=== PATIENT | female | born 1960 | race Hispanic/Latino ===

== ENCOUNTER 2020-04-14 02:47 | Observation (INO) | payer OTHER ==
--- NOTE | 2020-04-14 03:07 | PDOC.FPRHP ---
- History of Present Illness Chief Complaint: R sided weakness and numbness History of Present Illness: Ms. Buckley is a 59yoF who presented to the ED as a transfer from [place] for TIA/CVA workup. Symptoms started Tuesday night at 1900 while she was at home watching TV. Initially it was her R arm and leg that progressively went from tingling to numbness with associated weakness. Throughout the day yesterday and into last night it was worse and she decided to come in. She has a history of TIAs in the past, last one in around 2014. She has previously been hospitalized in the [place] area for these workups. History of "clot in heart artery" and was on blood thinners, she believes plavix , but discontinued this medication 13 years ago. She lives in [place] and sees Dr. Linda Carcamo. ED Course: ASA 324 - Allergies/Adverse Reactions Allergies Allergy/AdvReac Type Severity Reaction Status Date / Time azithromycin Allergy Verified 04/14/20 03:28 codeine Allergy Verified 04/14/20 03:28 - Home Medications Medication Instructions Recorded Confirmed Type Albuterol Sulfate [Proair 90 mcg INH PRN PRN 04/14/20 04/14/20 History Digihaler] Budesonide/Formoterol Fumarate 10.2 gm IH BID 04/14/20 04/14/20 History [Budesonide-Formoterol 160-4.5] Lisinopril [Zestril] 10 mg PO DAILY 04/14/20 04/14/20 History metFORMIN HCl [Metformin HCl] 1,000 mg PO DAILY 04/14/20 04/14/20 History - History PMHx: DM II HTN Asthma/COPD Cirrhosis of liver (?Hep C) PSHx: Appendectomy R cataract surgery 2 months ago L planned soon FHx: Non-contributory Social: Currently smokes 1/2ppd x 30 years. Denies drug use. Occasional alcohol use. - Review of Systems General: denies: fever/chills, weight/appetite/sleep changes, night sweats, fatigue Eyes: denies: eye pain, vision changes ENT: reports: nasal congestion, rhinorrhea, other (seasonal allergies) Respiratory: reports: cough (chronic), shortness of breath. denies: congestion , exercise intolerance Cardiovascular: reports: orthopnea. denies: chest pain, palpitation, edema, paroxysmal nocturnal dyspnea Gastrointestinal: denies: nausea, vomiting, diarrhea, constipation Genitourinary: denies: incontinence, dysuria, polyuria Skin: denies: rashes, lesions Musculoskeletal: denies: pain, tenderness, stiffness Neurological: reports: numbness, weakness. denies: syncope, seizure - Vital signs BP: 142/88, Pulse: 78, Resp: 16, Temp: 98.7 (Oral), Pain: 0, O2 sat: 97 on (2L Oxygen), Weight 68kg - Physical Exam Constitutional: NAD, awake, alert and oriented, well developed HEENT: normocephalic and atraumatic, PERRLA FMR H&P: Results - Labs Result Diagrams: 04/14/20 05:31 04/14/20 05:31 Lab results: Na 143, K 3.6, Cl 109, CO2 24, Glucose 188, BUN 4, Cr 0.7, TBili 3.3, Alk phos 95, AST 58, ALT 23, Albumin 2.7 Trop 0.024 WBC 5.57, Hb 13.2, HCT 41.8, Platelet 81, MCV 102 PT 19.8, PTT 39.9, INR 1.7 - Radiology Interpretation CT scan - head Status: report reviewed by me (CT HEAD: No acute findings CTA HEAD and NECK: No acute findings.) FMR H&P: A/P - Problem List (1) TIA (transient ischemic attack) Current Visit: Yes Status: Acute Code(s): G45.9 - TRANSIENT CEREBRAL ISCHEMIC ATTACK, UNSPECIFIED (2) HTN (hypertension) Current Visit: Yes Status: Acute Code(s): I10 - ESSENTIAL (PRIMARY) HYPERTENSION (3) Type II diabetes mellitus Current Visit: Yes Status: Acute (4) COPD (chronic obstructive pulmonary disease) Current Visit: Yes Status: Acute (5) On home oxygen therapy Current Visit: Yes Status: Acute Code(s): Z99.81 - DEPENDENCE ON SUPPLEMENTAL OXYGEN - Plan TIA vs CVA Symptoms > 24 hours. NIH of [address] and CTA Head and neck in [place] Will start aspirin and statin. Consult neuro PT/OT MRI ordered for AM. H/o cirrhosis Will order Hepatitis labs. Patient is unsure of etiology of liver disease RUQ US ordered COPD Duonebs scheduled, home meds on O2 at 3L at home at baseline DM II A1c ordered Restart home meds HTN Continue home meds Fluids: TKO Code: DNI, cardiac only PPx: lovenox Dispo: Stable, obs. Pending MRI FMR H&P: Upper Level - Plan Date/Time: 04/14/20304 PCP: ALEX HPI: This is a 59 yo F admitted for evaluation of R upper and lower extremity weakness. She states that Tuesday night at 7pm (36 hrs ago) she started to have R arm and R leg numbness. The next morning she woke up and states that her weakness got progressively worse throughout the day. She states that she has had many TIAs in the past, all worked up in [place]. She denies headache, N/V , photophobia. Denies visual changes, slurred speech, or facial droop. 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 She states she has had cough and runny nose for a few weeks from allergies which are stable. She has had cataract surgery on the R eye and is awaiting cataract surgery on the L. Her vision is blurry from the L eye but this is chronic. She states L eye has been red for a few days. She is on o2 at home chronically. She has smoked at least ppd for 30 years. PHYSICAL EXAMINATION: General: NAD, alert and oriented x3 HEENT: PERRLA, EOMI, normal sclera, oropharynx without erythema or exudate, L eye injected, no purulence Neck: Supple. Full ROM. Heart/Cardiovascular System: RRR, Cap refill < 3 seconds, no rub, no murmur Lungs/Respiratory System: Exp wheeze bilaterally, no resp distress Abdomen/Gastro-Intestinal System: no abdominal tenderness, normal bowel sounds Extremities: Warm extremities. No cyanosis or edema. Neuro: CN 2-12 grossly intact. Patient can lift R arm and leg but they drift back to bed, audience coordinator strength at R hand diminished, R arm is dull to touch Psychiatry: Awake, Alert and cooperative with exam Skin: No lesions, rashes, or ulcers A/P: # Likely CVA - Symptoms persistent >24 hours, NIHSS: 6 - CTA head/neck negative in [place] - ASA, statin, MRI, PT/OT, Neuro consult - Would prefer rehab at home rather than inpt. - Risk stratification labs # Cirrhosis - Denies Hep C, social drinker, Meld-na 17 - Check HIV/RPR/Hep C - Check RUQ US, states she has not had one she knows of # COPD not in exacerbation - Duonebs scheduled, home meds # DM2 - Home meds, A1C Fluids: TKO Code: DNI PPx: lovenox Dispo: OBS, likely upgrade to inpatient pending MRI/symptom resolution Addendum - Attending - Attending Attestation Date/Time: 04/14/20 2410 I personally evaluated the patient and discussed the management with Dr. Lora/ Franca. I agree with the History, Examination, Assessment and Plan documented above with any addition or exceptions noted below. Patient here for CVA/TIA workup. MRI pending. CTA and CT did not reveal acute issues. She has contraindication to statin therapy based on active cirrhosis. RUQ U/S confirms that previous diagnosis. Neuro has been consulted. ASA therapy. Further mgmt pending MRI result. >24 hour since presentation so no need for permissive HTN.
[2020-04-14] MEDS ORDERED: HumaLOG 300 UNITS/3 ML VIAL SC PRN ×2 (03:43)
[2020-04-14] MEDS ORDERED: Calcium Carbonate 500 MG ChewTAB PO PRN (03:43)
[2020-04-14] MEDS ORDERED: Dextrose 5% in Water 1,000 ML IV PRN (03:43)
[2020-04-14] MEDS ORDERED: Ondansetron PF 4 MG/2 ML Vial IVP PRN (03:43)
[2020-04-14] MEDS ORDERED: Acetaminophen 325 MG TAB PO PRN (03:43)
[2020-04-14] MEDS ORDERED: hydrALAZINE 20 MG/ML VIAL SLOW IVP PRN (03:43)
[2020-04-14] MEDS ORDERED: Dextrose 50% Abboject 50 ML SYRINGE SLOW IVP PRN (03:43)
[2020-04-14 04:16] VITALS: BMI 24.0
[2020-04-14 06:06] LABS: Hemoglobin A1c 5.1 % (4.0-6.0)
[2020-04-14 06:18] LABS: #Basophils 0.1 thou/uL (0.0-0.2); #Eosinphils 0.7 thou/uL (0.0-0.7); #Lymphocytes 2.4 thou/uL (1.20-3.40); #Monocytes 0.8 thou/uL (0.11-0.59); #Neutrophils 1.3 thou/uL (1.40-6.50); %Basophils 1.6 % (0.0-1.0); %Eosinophils 12.7 % (0.0-10.0); %Monocytes 14.9 % (0.0-10.0); %Neutrophils 24.8 % (42.0-75.0); Mean Corpuscular HGB CONC 34.1 g/dL (32.0-36.0); Mean Corpuscular Hemoglobin 35.8 pg (27.0-31.0); Platelet Count 74 thou/uL (130-400); RBC Distribution Width 13.1 % (11.5-14.5); Red Blood Cell (RBC) Count 3.63 mill/uL (4.20-5.40); White Blood Cell (WBC) Count 5.2 thou/uL (4.8-10.8)
[2020-04-14 06:19] LABS: MDiff Complete? YES; Macrocytosis SLIGHT = 6-15 cells (100X) (0-5/hpf); Platelet Morphology Comment Appears Decreased
[2020-04-14 06:22] LABS: ALT (SGPT) 21 U/L (8-55); AST (SGOT) 52 U/L (5-34); Albumin 2.6 g/dL (3.5-5.0); Alkaline Phosphatase 102 U/L (40-110); Anion Gap 9 mmol/L (10-20); BUN (Urea Nitrogen) 5 mg/dL (9.8-20.1); Bilirubin, Total 2.9 mg/dL (0.2-1.2); Calc. Creatinine Clearance 91 mL/min (70-130); Calcium 8.1 mg/dL (7.8-10.44); Carbon Dioxide 28 mmol/L (22-29); Cardiac Risk 2.1 (Less than 4.5); Chloride 109 mmol/L (98-107); Cholesterol 98 mg/dl (< 200 Desired); Estimated GFR-MDRD Greater than 90; Globulin 3.4 g/dL (2.4-3.5); Glucose 103 mg/dL (70-105); HDL Cholesterol 46 mg/dL (>60 Neg Risk); LDL Cholesterol, Calculated 41 mg/dL; Potassium 3.6 mmol/L (3.5-5.1); Sodium 142 mmol/L (136-145); Triglycerides 54 mg/dL (Less than 150)
[2020-04-14 06:38] LABS: Syphilis Antibody Nonreactive (Nonreactive)
[2020-04-14 06:41] LABS: HBCM Index 0.07 S/CO (0-0.79); HBSAg Index 0.18 S/CO (0-0.99); HIV (1/2) Antibody/Antigen Non-Reactive (NonReactive); HIV 1/2 INDEX 0.14 S/CO (<1.00); Hep B Surf Ag Non-Reactive S/CO (NonReactive); Hepatitis B Core IgM Abs Non-Reactive (NonReactive); Thyroid Stimulating Hormone 4.2985 uIU/mL (0.35-4.94)
[2020-04-14 06:45] LABS: HBSAB Concentration 242.56 mIU/mL; Hep B Surf AB Reactive (NonReactive); Hep C IgG Ab Reflex HepC Qnt (NonReactive)
[2020-04-14 06:46] LABS: Hep C Index 11.32 S/CO (0-0.79)
[2020-04-14] MEDS ORDERED: Lorazepam 2 MG/ML VIAL SLOW IVP SCH (07:45)
--- NOTE | 2020-04-14 07:47 | ULT ---
Sonogram right upper quadrant Hepatic duplex sonogram HISTORY: Abnormal liver function tests. Cirrhosis. FINDINGS: Echogenic stones are present within the dependent portion of the gallbladder lumen. There i s no gallbladder wall thickening or pericholecystic fluid. Common duct is 0.4 cm. Liver is diffusely echogenic with irregular margins. No focal mass or intrahepatic biliary dilatation . No free fluid. Color and spectral Doppler evaluation of the portal vein shows flow away from the liver. IMPRESSION : Cholelithiasis. No evidence of acute biliary obstruction. Cirrhosis and hepato-steatosis. Reversal of portal venous flow (hepatofugal flow). Evidence of severe portal venous hypertension.
[2020-04-14] MEDS: metFORMIN 500 MG TAB PO SCH (08:01)
[2020-04-14] MEDS: Lisinopril 10 MG TAB PO SCH (08:01)
[2020-04-14] MEDS: Aspirin 81 mg Enteric Coated Tablet PO SCH (08:01)
[2020-04-14] MEDS: Enoxaparin Sodium 40 MG/0.4 ML SYRINGE SC SCH (08:05)
[2020-04-14 08:30] LABS: INR-International Normal Ratio 1.6; PTT 42.2 sec (22.9-36.1); Prothrombin Time 18.7 sec (12.0-14.7)
[2020-04-14] MEDS ORDERED: Prevnar 13-Val Conj/PF 0.5 ML SYRINGE IM ONE (09:00)
[2020-04-14] MEDS ORDERED: Erythromycin Base 0.5% Oint 1 GM TUBE L EYE SCH (11:00)
--- NOTE | 2020-04-14 11:49 | CON ---
NEUROLOGY CONSULTATION DATE OF CONSULTATION: 04/14/2020 HISTORY OF PRESENT ILLNESS: Ms. Disla is a 59-year-old female, who has been transferred to the emergency from [place] for TIA. The patient's symptoms started around 7 p.m., on Tuesday night, when she was watching TV. At first, she felt her right arm and then the leg became progressively worse with tingling and numbness. Yesterday, she waited but the symptoms did not resolve, so she decided to come to the emergency room for further evaluation. She does have history of TIAs in the past and the last one was in 2014. She was on Plavix several years ago because of clot in one of the coronary arteries, but that was discontinued 13 years ago. In the emergency room, 324 mg aspirin was given. Head CT was done, which did not reveal any acute intracranial pathology. She was admitted for further workup. The patient denies nausea, vomiting, vertigo, dizziness, chest pain, abdominal pain, problems with swallowing, problems with speech, loss of vision, or loss of consciousness associated with the episode. PAST MEDICAL HISTORY: Diabetes mellitus type 2, hypertension, cirrhosis of the liver because of hep C, asthma, and COPD. PAST SURGICAL HISTORY: Right eye cataract surgery 2 months ago, appendectomy. FAMILY HISTORY: No family history of stroke. SOCIAL HISTORY: The patient denies alcohol or illegal drug use. She smokes 1/2 pack per day for the last 30 years. REVIEW OF SYSTEMS: All 14 systems were reviewed and were negative except the pertinent positive and negative mentioned in the HPI. Allergies/Adverse Reactions Allergies Allergy/AdvReac Type Severity Reaction Status Date / Time azithromycin Allergy Verified 04/14/20 03:28 codeine Allergy Verified 04/14/20 03:28 - Home Medications Medication Instructions Recorded Confirmed Type Albuterol Sulfate [Proair 90 mcg INH PRN PRN 04/14/20 04/14/20 History Digihaler] Budesonide/Formoterol Fumarate 10.2 gm IH BID 04/14/20 04/14/20 History [Budesonide-Formoterol 160-4.5] Lisinopril [Zestril] 10 mg PO DAILY 04/14/20 04/14/20 History metFORMIN HCl [Metformin HCl] 1,000 mg PO DAILY 04/14/20 04/14/20 History - Vital signs BP: 142/88, Pulse: 78, Resp: 16, Temp: 98.7 (Oral), Pain: 0, O2 sat: 97 on (2L Oxygen), Weight 68kg 04/14/20 05:31 Lab results: Na 143, K 3.6, Cl 109, CO2 24, Glucose 188, BUN 4, Cr 0.7, TOTAL BILIRUBIN 3.3 , Alk phos 95, AST 58, ALT 23, Albumin 2.7 Trop 0.024 WBC 5.57, Hb 13.2, HCT 41.8, Platelet 81, MCV 102 PT 19.8, PTT 39.9, INR 1.7 - Radiology Interpretation CT scan - head Status: report reviewed by me (CT HEAD: No acute findings CTA HEAD and NECK: No acute findings.) PHYSICAL EXAMINATION: CVS: Regular rate and rhythm. CHEST: Clear. ABDOMEN: Soft. NECK: No carotid bruit. NEUROLOGIC: Mental status; the patient is alert and oriented to person, place, and time. Speech is clear. Motor, muscle tone and bulk are normal. Strength 2/5 in the right upper extremity, 3/5 in the right lower extremity, left upper and lower extremities 5/5. Muscle tone and bulk are normal. Sensory, decreased sensation to pinprick and light touch on the right upper and lower extremities. Reflexes, symmetric bilaterally. Cerebellar, unable to perform finger-nose testing or [id number] test due to weakness on the right. Toes equivocal bilaterally. Gait deferred due to the patient's safety reason. ASSESSMENT AND PLAN: Ms. Nighat Buckley is a 59-year-old female, admitted with right upper and lower extremity weakness and paresthesias. She has history of transient ischemic attacks in the past with workup currently having focal deficits on the right, most likely cerebrovascular accident involving the left middle cerebral artery region. Head CT reviewed, which was negative for acute intracranial pathology. CT of the head and neck was negative in [place] with no hemodynamically significant stenosis. Recommend MRI of the brain to rule out acute intracranial process. Neuro checks every 4 hours. Continue aspirin for secondary stroke prevention. Permissive blood pressure control at this time. Strict control of blood glucose. Continue home medications. Continue medical management per Primary Team. Consider high- intensity statin for secondary stroke prevention. PT/OT/speech. Further recommendations depending on the results of the testing. We will continue to follow. Thank you for the consult. Job ID: [id number] MTDD
[2020-04-14] MEDS: Bacitracin-Polymyxin B Opth Oint 3.5 GM TUBE L EYE SCH ×3 (13:39→19:54)
--- NOTE | 2020-04-14 13:42 | MRI ---
MRI BRAIN WITHOUT CONTRAST: Indications: TIA, right side weakness. FINDINGS: Ventricles have normal size and position. There is no evidence of restricted diffusion. No evidence of acute infarct. No mass or edema. There are mild white matter changes. Intracranial internal carotid arteries, proximal cerebral arteries, basal artery and dural venous sin uses all show flow voids. Paranasal sinuses and mastoids appear clear. IMPRESSION: 1. No evidence of acute infarct. 2. Mild chronic ischemic white matter change. POS: AGW
[2020-04-14] MEDS ORDERED: Atorvastatin Calcium 40 MG TAB PO SCH (21:00)
[2020-04-15] MEDS: Bacitracin-Polymyxin B Opth Oint 3.5 GM TUBE L EYE SCH ×5 (01:07→19:49)
--- NOTE | 2020-04-15 06:46 | PDOC.FM ---
- Subjective Subjective: Patient reports her strength in her right arm and leg are almost back to normal. No acute events overnight or other complaints today. - Objective Vital Signs & Weight: Vital Signs (12 hours) Temp Pulse Resp BP Pulse Ox 04/15/20 03:10 87 16 98 04/15/20 03:08 98.1 F 86 20 154/60 H 96 04/14/20 23:10 98.1 F 87 20 157/85 H 96 04/14/20 22:08 90 16 98 04/14/20 19:50 98.1 F 88 21 H 158/87 H 97 04/14/20 18:56 80 16 98 Weight Weight 59.647 kg I&O: 04/13/20 04/14/20 04/15/20 06:59 06:59 06:59 Intake Total 138 Balance 138 Result Diagrams: 04/14/20 05:31 04/15/20 10:44 Phys Exam - Physical Examination Constitutional: NAD HEENT: moist MMs erythema L conjunctiva, poor dentition, EOMI Neck: no nodes, supple Respiratory: no wheezing, clear to auscultation bilateral Cardiovascular: RRR, no significant murmur Gastrointestinal: soft, non-tender Musculoskeletal: no edema, pulses present Neurological: moves all 4 limbs BUE strength equal but diminished, BLE right 4/5 left 5/5; diffuse weakness No sensory deficit. Disdiadochokinesis RUE but not RLE Psychiatric: normal affect, A&O x 3 Skin: no rash, normal turgor, cap refill <2 seconds Dx/Plan (1) COPD (chronic obstructive pulmonary disease) Status: Chronic (2) HTN (hypertension) Code(s): I10 - ESSENTIAL (PRIMARY) HYPERTENSION Status: Chronic (3) On home oxygen therapy Code(s): Z99.81 - DEPENDENCE ON SUPPLEMENTAL OXYGEN Status: Chronic (4) TIA (transient ischemic attack) Code(s): G45.9 - TRANSIENT CEREBRAL ISCHEMIC ATTACK, UNSPECIFIED Status: Acute (5) Type II diabetes mellitus Status: Chronic - Plan Plan: #TIA, improving Symptoms > 24 hours. NIH of 6 -> 4 -> [address] and CTA Head and neck in [place], MRI showed chronic changes, no evidence acute stroke Continue aspirin; will not start statin due to cirrhosis. Consult neuro, appreciate recs PT/OT recommend rehab placement, Post acute screen in, Case management consulted for placement #Cirrhosis/hepato-steatosis #Severe Portal Venous HTN Hep C ab +, Hep C quant pending (send out). Pt states she was recently tested and negative for hep C RUQ US showed hepatic steatosis and Portal venous HTN Plan for GI follow up after discharge Will not give statins 2/2 to chronic liver disease #COPD Duonebs scheduled, home meds on O2 at 3L at home at baseline #DM II A1c 5.1 Restart home meds SSI #HTN Continue home meds #Bacterial conjunctivitis L eye - bactrim-polymixin B q4h for 7-10 days #Physical deconditioning -Diffuse weakness -PT/OT consulted, plan for placement in rehab if possible -Pt prefers to be somewhere near [place] Fluids: TKO Code: DNI, cardiac only PPx: lovenox Dispo: Stable, obs. Appreciate neuro recommendations. Plan for placement at rehab, Case management consulted for placement. Addendum - Attending - Attending Attestation Date/Time: 04/15/20 2446 I personally evaluated the patient and discussed the management with Dr. Nelly Schulte. I agree with the History, Examination, Assessment and Plan documented above with any addition or exceptions noted below. Patient stable. MRI did not reveal acute infarct. We are working to get her to rehab. She also has this chronic and poorly controlled cirrhosis that needs outpatient evaluation and management.
[2020-04-15 07:26] LABS: Anion Gap 11 mmol/L (10-20); BUN (Urea Nitrogen) 5 mg/dL (9.8-20.1); Carbon Dioxide 26 mmol/L (22-29); Chloride 103 mmol/L (98-107); Potassium 3.4 mmol/L (3.5-5.1); Sodium 137 mmol/L (136-145)
[2020-04-15 07:27] LABS: ALT (SGPT) 18 U/L (8-55); AST (SGOT) 46 U/L (5-34); Albumin 2.7 g/dL (3.5-5.0); Alkaline Phosphatase 91 U/L (40-110); Bilirubin, Total 5.1 mg/dL (0.2-1.2); Calc. Creatinine Clearance 100 mL/min (70-130); Calcium 8.3 mg/dL (7.8-10.44); Estimated GFR-MDRD Greater than 90; Globulin 3.5 g/dL (2.4-3.5); Glucose 133 mg/dL (70-105); Protein, Total 6.2 g/dL (6.0-8.3)
[2020-04-15] MEDS ORDERED: Potassium Chloride 20 MEQ TAB PO SCH (09:00)
[2020-04-15 09:10] LABS: Magnesium 1.7 mg/dL (1.6-2.6)
[2020-04-15] MEDS: metFORMIN 500 MG TAB PO SCH (09:59)
[2020-04-15] MEDS: Aspirin 81 mg Enteric Coated Tablet PO SCH (09:59)
[2020-04-15] MEDS: Lisinopril 10 MG TAB PO SCH (10:00)
[2020-04-15] MEDS: Enoxaparin Sodium 40 MG/0.4 ML SYRINGE SC SCH (10:30)
[2020-04-15 11:05] LABS: INR-International Normal Ratio 1.7; PTT 40.4 sec (22.9-36.1)
[2020-04-15 11:25] LABS: ALT (SGPT) 18 U/L (8-55); AST (SGOT) 45 U/L (5-34); Albumin 2.7 g/dL (3.5-5.0); Alkaline Phosphatase 93 U/L (40-110); Anion Gap 11 mmol/L (10-20); BUN (Urea Nitrogen) 6 mg/dL (9.8-20.1); Bilirubin, Direct 1.2 mg/dL (0.1-0.3); Bilirubin, Total 4.8 mg/dL (0.2-1.2); Bilirubin, Total 4.9 mg/dL (0.2-1.2); Calc. Creatinine Clearance 104 mL/min (70-130); Calcium 8.5 mg/dL (7.8-10.44); Carbon Dioxide 25 mmol/L (22-29); Chloride 104 mmol/L (98-107); Estimated GFR-MDRD Greater than 90; Globulin 3.5 g/dL (2.4-3.5); Glucose 128 mg/dL (70-105); Potassium 3.5 mmol/L (3.5-5.1); Protein, Total 6.2 g/dL (6.0-8.3); Sodium 136 mmol/L (136-145)
--- NOTE | 2020-04-15 12:17 | PDOC.HOSPP ---
- Subjective Encounter Date: 04/15/20 Subjective: NEUROLOGY PROGRESS NOTE No acute events overnight. - Objective Vital Signs & Weight: Vital Signs (12 hours) Temp Pulse Pulse Resp BP BP BP 04/15/20 11:42 98 F 88 20 160/84 H 04/15/20 10:35 85 18 04/15/20 10:00 153/86 H 04/15/20 09:40 87 153/86 H 04/15/20 07:40 98.5 F 96 20 147/74 H 04/15/20 06:45 88 20 04/15/20 03:10 87 16 04/15/20 03:08 98.1 F 86 20 154/60 H Pulse Ox 04/15/20 11:42 98 04/15/20 10:35 99 04/15/20 10:00 04/15/20 09:40 04/15/20 07:40 99 04/15/20 06:45 100 04/15/20 03:10 98 04/15/20 03:08 96 Weight Weight 131 lb 8 oz I&O: 04/14/20 04/15/20 04/16/20 06:59 06:59 06:59 Intake Total 138 360 Balance 138 360 Result Diagrams: 04/14/20 05:31 04/15/20 10:44 Additional Labs: Accuchecks 04/15/20 04/15/20 04/14/20 10:46 05:19 21:40 POC Glucose 131 H 144 H 157 H 04/14/20 16:44 POC Glucose 132 H Radiology Reviewed by me: Yes EKG Reviewed by me: Yes Hospitalist ROS - Review of Systems Constitutional: denies: fever, chills, sweats, weakness, malaise, other Eyes: denies: pain, vision change, conjunctivae inflammation, eyelid inflammation, redness, other ENT: denies: ear pain, ear discharge, nose pain, nose discharge, nose congestion , mouth pain, mouth swelling, throat pain, throat swelling, other Respiratory: denies: cough, dry, shortness of breath, hemoptysis, SOB with excertion, pleuritic pain, sputum, wheezing, other Cardiovascular: denies: chest pain, palpitations, orthopnea, paroxysmal noc. dyspnea, edema, light headedness, other Gastrointestinal: denies: nausea, vomiting, abdominal pain, diarrhea, constipation, melena, hematochezia, other Genitourinary: denies: dysuria, frequency, incontinence, hematuria, retention, other Musculoskeletal: denies: neck pain, shoulder pain, arm pain, back pain, hand pain, leg pain, foot pain, other Neurological: reports: weakness - Medication Medications: Active Medications Generic Name Dose Route Start Last Admin Trade Name Freq PRN Reason Stop Dose Admin Albuterol/Ipratropium 3 ml 04/14/20 06:30 04/15/20 10:35 Duoneb NEB 3 ml [id number] FRANCINE Administration Aspirin 81 mg 04/14/20 09:00 04/15/20 09:59 Ecotrin PO 81 mg DAILY FRANCINE Administration Bacitracin/Polymyxin B Sulfate 1 gm 04/14/20 13:00 04/15/20 09:55 Polysporin Opth Ointment L EYE 1 gm Q4HR FRANCINE Administration Enoxaparin Sodium 40 mg 04/14/20 09:00 04/15/20 10:30 Lovenox SC Not Given 09 FRANCINE Lisinopril 10 mg 04/14/20 09:00 04/15/20 10:00 Zestril PO 10 mg DAILY FRANCINE Administration Lorazepam 0.25 mg 04/14/20 07:45 04/14/20 08:02 Ativan SLOW IVP 0.25 mg WILLCALL FRANCINE Administration Metformin HCl 1,000 mg 04/14/20 09:00 04/15/20 09:59 Glucophage PO 1,000 mg DAILY FRANCINE Administration Sodium Chloride 10 ml 04/14/20 03:43 04/14/20 19:56 Flush - Normal Saline IVF 10 ml PRN PRN Administration Saline Flush - Exam General Appearance: awake alert Eye: PERRL ENT: normocephalic atraumatic Neck: supple Heart: RRR Respiratory: CTAB Gastrointestinal: soft Extremities: no cyanosis Skin: normal turgor Neurological: no new deficit Psychiatric: normal affect, normal behavior, A&O x 3, oriented to person, oriented to place, oriented to time Hosp A/P (1) TIA (transient ischemic attack) Code(s): G45.9 - TRANSIENT CEREBRAL ISCHEMIC ATTACK, UNSPECIFIED Status: Acute (2) COPD (chronic obstructive pulmonary disease) Status: Chronic (3) HTN (hypertension) Code(s): I10 - ESSENTIAL (PRIMARY) HYPERTENSION Status: Chronic (4) On home oxygen therapy Code(s): Z99.81 - DEPENDENCE ON SUPPLEMENTAL OXYGEN Status: Chronic (5) Type II diabetes mellitus Status: Chronic - Plan PT/OT, speech therapy 59 year old with stroke like symptoms which are improved at this time. Negative CT and CTA Head and neck in [place] MRI brain reviewed which showed chronic changes but no evidence acute infarction. Continue aspirin for secondary stroke prevention. Continue home medications. Agree with holding statin due to cirrhosis Neurochecks every 4 hours. PT/OT recommended rehab placement Case management consult in place for placement. Continue medical management per primary team.
[2020-04-15 19:44] VITALS: BP 152/84; TEMP 98.3
--- NOTE | 2020-04-16 12:52 | DIS ---
DATE OF ADMISSION: 04/14/2020 DATE OF DISCHARGE: 04/15/2020 RESIDENT: Loretta Schulte MD ADMITTING ATTENDING: Claudio Dennison MD DISCHARGE ATTENDING: Jayce Guy MD CONSULTS: Neurology, Dr. Hoskins, on 04/14/2020. PROCEDURES: Brain MRI 04/14/2020; impression, no evidence of acute infarct. Mild chronic ischemic white matter change. Abdomen ultrasound 04/14/2020; impression, cholelithiasis. No evidence of acute biliary obstruction. Cirrhosis and hepatosteatosis. Reversal of portal venous flow, hepatofugal flow. Evidence of severe portal venous hypertension. PRIMARY DIAGNOSIS: Transient ischemic attack. SECONDARY DIAGNOSES: 1. Cirrhosis. 2. Hepatosteatosis. 3. Severe portal venous hypertension. 4. Elevated bilirubin. 5. Chronic obstructive pulmonary disease. 6. Diabetes mellitus, type 2. 7. Hypertension. 8. Bacterial conjunctivitis of the left eye. 9. Physical deconditioning. 10. Thrombocytopenia. DISCHARGE MEDICATIONS: 1. Polysporin ophthalmic ointment 1 cm to left eye q.4 hours for 7 to 10 days. 2. Aspirin 81 mg p.o. daily. 3. Lisinopril 10 mg p.o. daily. 4. Metformin 1000 mg p.o. daily. 5. Budesonide formoterol inhalation twice daily. 6. Albuterol sulfate 90 mcg p.r.n. for wheezing. DISCONTINUED MEDICATIONS: None. HISTORY OF PRESENT ILLNESS/HOSPITAL COURSE: A 59-year-old female who presented for to the ED as a transfer from [place] for a TIA, CVA workup. Her symptoms started Tuesday night 04/12/2020 at 1900 hours while she was watching TV. She reports right arm and leg went from tingling to numbness with associated weakness. Throughout the next day, this became worse so she came to the ED. She has a history of TIAs, last one in 2015 and has been previously hospitalized in [place] for these workups. She also reports she has a history of a clot in the heart artery and was on blood thinners, Plavix, but discontinued this medication 13 years ago. She lives in [place] and sees Linda Chaves as her PCP. In the ED, she was given aspirin 324 mg. The patient had a CT of the head and a CT head and neck in [place], that showed chronic ischemic changes, but no evidence of acute stroke. She was not started on statin due to her cirrhosis. Neurology was consulted. The patient's right-sided weakness improved to almost baseline and her numbness also improved as well. She is discharged to home with an order for outpatient physical therapy and occupational therapy. She was continued on her aspirin. The patient had a positive hep C antibody with an abdominal ultrasound that showed severe portal venous hypertension as well as cirrhosis and hepatosteatosis. Reflex quant was pending; however, the patient states she has had this done before and it was negative. The patient's bilirubin was also elevating to her stay here. Most recently, it was 4.8 on discharge with a direct bilirubin of 1.2. Her AST on discharge is 45. Her albumin was 2.7. Her coagulation PT was 20.0, elevated; INR was 1.7, and PTT was 40.4. All anticoagulants were held as the patient's platelet count was 74. I recommend close followup with GI for her chronic liver disease. The patient is also discharged with Bactrim polymixin B q.4-6 hours for 7 to 10 days for bacterial conjunctivitis of the left eye. DISPOSITION: Stable. INSTRUCTIONS: 1. Location: Home. 2. Diet: Heart-healthy. 3. Activity: As tolerated. 4. Follow up with PCP, Dr. Linda Chaves within 1 week. Follow up with referral for GI for elevated bilirubin and portal venous hypertension, as well as cirrhosis and hepatosteatosis. Job ID: [id number] MTDD
[2020-04-16 16:15] LABS: Hep C PCR-Quant HCV Not Detected IU/mL (.)
== END 2020-04-15 22:00 | disposition home or self-care (01) ==
LOC: ERS 02:47 → 2SE 03:08 → INTOOBSV 03:08
PROVIDERS: ADMIT Emergency Medicine; ATTEND Emergency Medicine
DX: G45.9 Transient cerebral ischemic attack, unspecified (principal); K76.6 Portal hypertension; K74.60 Unspecified cirrhosis of liver; K76.0 Fatty (change of) liver, not elsewhere classified; J44.9 Chronic obstructive pulmonary disease, unspecified; E11.9 Type 2 diabetes mellitus without complications; I10 Essential (primary) hypertension; D69.6 Thrombocytopenia, unspecified; Z79.84 Long term (current) use of oral hypoglycemic drugs; Z79.899 Other long term (current) drug therapy; Z88.1 Allergy status to other antibiotic agents; Z88.5 Allergy status to narcotic agent; Z99.81 Dependence on supplemental oxygen
CPT/HCPCS: 36415; 36416; 70551; 76705; 80053; 80061; 82247; 83036; 83735; 84100; 84443; 85025; 85610; 85730; 86705; 86706; 86780; 86803; 87340; 87389; 87522; 94640; 96365; 96375; G0378; J2060; J3475; J3490; J7620